=== PATIENT | female | born 1935 | race Caucasian/White ===

== ENCOUNTER 2019-12-23 23:29 | Inpatient (IN) | payer OTHER, MEDICAID ==
[~2019-12-23] VITALS: Ht 157.5 cm; Wt 59.6 kg
[2019-12-23 23:29] VITALS: BP_SYST 123
[~2019-12-23 23:29] MED LIST: ASPI-1155 PO; DONE10TA44 PO; EMPA25TA PO; ESCI10TA PO; FOLI0.8T42 PO; FURO-150 PO; ICOS1CAP PO; NEBI5TAB3 PO; ROSU20TA32 PO; STA120 PO; VITD2000 PO
--- NOTE | 2019-12-23 23:49 | NUR ---
Patient to ER bed 6 to gown for evaluation. Side rails up.
--- NOTE | 2019-12-23 23:50 | NUR ---
Patient BIB EMS. C/O right hip pain x today. Patient states "right hip pain at 2100, could not walk and felt weakness. " Sx In-situ multiple screw fixation, Right hip fx (11/27/2019). A/O,X4, right hip pain, pain rate 10/10, place patient on chief engineer drilling and recovery, slightly swelling right leg.
--- NOTE | 2019-12-24 01:50 | NUR ---
ER Dr. Santos at bedside examining patient.
[2019-12-24] MEDS ORDERED: MORPHINE 2 MG/ML INJ. SYRINGE IM ONE (02:00)
--- NOTE | 2019-12-24 02:07 | NUR ---
Blood for labwork drawn from Mechanical Engineering Teacher. Patient tolerated well.
--- NOTE | 2019-12-24 02:20 | NUR ---
Ultrasound at bedside.
[2019-12-24 02:21] LABS: BASOPHILS # (AUTO) 0.1 K/uL (0.0-0.2); BASOPHILS % (AUTO) 1.2 % (0.0-2.0); EOSINOPHILS # (AUTO) 0.2 K/uL (0.0-0.4); EOSINOPHILS % (AUTO) 2.3 % (0.0-4.0); HEMATOCRIT 33.2 % (36-48); HEMOGLOBIN 11.1 g/dL (12.0-16.0); LYMPHOCYTES # (AUTO) 1.5 K/uL (1.0-5.5); LYMPHOCYTES % (AUTO) 19.8 % (20.5-51.5); MEAN CORPUSCULAR HEMOGLOBIN 30 pg (27-31); MEAN CORPUSCULAR HGB CONC 34 % (32-36); MEAN CORPUSCULAR VOLUME 90 fL (79.0-98.0); MONOCYTES # (AUTO) 0.8 K/uL (0.0-1.0); MONOCYTES % (AUTO) 10.4 % (1.7-9.3); NEUTROPHILS # (AUTO) 5.2 K/uL (1.8-7.7); NEUTROPHILS % (AUTO) 66.3 % (40.0-70.0); PLATELET COUNT (AUTO) 284 K/uL (130-430); RED BLOOD CELL COUNT(AUTO) 3.69 MIL/uL (4.2-6.2); RED CELL DISTRIBUTION WIDTH 14.9 % (9.0-15.0); WHITE BLOOD COUNT (AUTO) 7.8 K/uL (4.8-10.8)
[2019-12-24 02:39] LABS: ANION GAP 3 (5-15); CHLORIDE 102 mmol/L (98-107); CREATININE 1.37 mg/dL (0.55-1.30); GLUCOSE 123 mg/dL (70-99); SODIUM SERUM 131 mmol/L (136-145); UREA NITROGEN, BLOOD 30 mg/dL (8-21)
[2019-12-24 02:44] LABS: ALANINE AMINOTRANSFERASE 29 U/L (12-78); ALBUMIN 2.7 g/dL (3.4-4.8); ASPARTATE AMINOTRANSFERASE 21 U/L (10-37); TOTAL BILIRUBIN 0.6 mg/dL (0.0-1.0)
[2019-12-24 02:48] LABS: PROTHROMBIN TIME 10.3 SECS (9.5-12.5)
[2019-12-24] MEDS ORDERED: ENOXAPARIN SODIUM 60 MG/0.6 ML SYRINGE SUBCUT ONE (03:00)
--- NOTE | 2019-12-24 03:20 | NUR ---
X-ray at bedside.
[2019-12-24] MEDS ORDERED: D5/0.45 NS 1,000 ML IV SCH (03:27)
--- NOTE | 2019-12-24 03:41 | NUR ---
Patient came back from CT scan.
[2019-12-24] MEDS ORDERED: LIP40 PO (03:59)
[2019-12-24] MEDS ORDERED: DONE5TAB26 PO (04:01)
[2019-12-24] MEDS ORDERED: BISA10SU61 RC (04:02)
--- NOTE | 2019-12-24 04:05 | NUR ---
# 22 gauge angiocath placed to left forearm. Use of asceptic technique. Opsite placed over site. Blood return noted. Blood for lab drawn from site. Flushed with 10 cc of normal saline. No evidence of infiltration noted. Patient tolerated well.
[2019-12-24] MEDS ORDERED: LATA2.5D2 OP (04:06)
[2019-12-24] MEDS ORDERED: POLY17PO4 PO (04:07)
[2019-12-24] MEDS ORDERED: HYDR-4274 PO (04:09)
[2019-12-24] MEDS ORDERED: HYDR-4272 PO (04:10)
[2019-12-24] MEDS ORDERED: FOLI0.8T42 PO (04:11)
--- NOTE | 2019-12-24 04:12 | NUR ---
Patient will be admitted to care of Dr. Paul. Admitted to Med/Surg unit. Will go to room 103B. Belongings list completed. Complete and up to date summary report printed. SBAR report to be given at bedside with opportunity for questions.
[2019-12-24] MEDS ORDERED: STA120 PO (04:14)
[2019-12-24] MEDS ORDERED: SENN-278 PO (04:14)
--- NOTE | 2019-12-24 04:21 | NUR ---
Transfer to Med/Surg via [facility]. Licensed nurse present. IV present no signs or symptoms of infiltration.
--- NOTE | 2019-12-24 04:30 | NUR ---
ADMISSION: The patient, LINDA DOBBS, 84 y/o, F admitted by MAUREEN LEBLANC MD, was given written information regarding hospital policies, unit procedures and contact persons. Valuables were checked and pt was informed her nurse will be Missy.
[2019-12-24 04:55] VITALS: BP_SYST 121
--- NOTE | 2019-12-24 06:40 | NUR ---
CLOSING NOTES Patient is resting, no signs of acute respiratory distress observed, IV site patent, dressings c/d/i, IVF running. Call light within reach, bed alarm on, bed at lowest position, all needs met throughout shift. Will endorse care to oncoming shift.
--- NOTE | 2019-12-24 06:46 | NUR ---
Nutrition Update Clay Scale 16 noted. Pt admitted for Acute DVT Diet: Mechanical soft BMI: 24 kg/m2 RD to follow per nutrition care standards.
--- NOTE | 2019-12-24 07:15 | NUR ---
OPENING NOTES PT AWAKE, ALERT, AND ORIENTED. NONLABORED BREATHING NOTED ON ROOM AIR, O2 AT 96%. PT DENIES PAIN AND SOB AT THIS TIME. IV LINE INTACT AND PATENT, NO SIGNS OF INFILTRATION NOTED, FLUIDS RUNNING ORDERED PER MD. NO ACUTE DISTRESS NOTED. BED LOCKED AND IN LOWEST POSITION. CALL LIGHT IN REACH. ALL NEEDS MET. FALL AND ASPIRATION PRECAUTIONS IN PLACE. CONTINUE TO MONITOR.
[2019-12-24 08:00] VITALS: BP_SYST 115
--- NOTE | 2019-12-24 09:00 | NUR ---
ROUNDS PT TALKING TO SON ON THE PHONE. NO ACUTE DISTRESS NOTED. CALL LIGHT IN REACH. CONTINUE TO MONITOR.
--- NOTE | 2019-12-24 11:28 | NUR ---
ROUNDS PT AWAKE, ALERT, AND ORIENTED. NONLABORED BREATHING NOTED ON ROOM AIR. NO ACUTE DISTRESS NOTED. ALL NEEDS MET. CALL LIGHT IN REACH. CONTINUE TO MONITOR.
[2019-12-24 13:00] VITALS: BP_SYST 138
--- NOTE | 2019-12-24 13:30 | NUR ---
GAVE PT PHONE MOLD CLOSER FROM SON. PT RECEIVED PHONE MOLD CLOSER.
--- NOTE | 2019-12-24 14:16 | NUR ---
SEEN BY DR. LEBLANC AT BEDSIDE.
[2019-12-24] MEDS: ENOXAPARIN SODIUM 80 MG/0.8 ML SYRINGE SUBCUT SCH (14:21)
--- NOTE | 2019-12-24 14:23 | NUR ---
ROUTINE MEDS ROUTINE MEDS ADMINISTERED ORDERED PER MD, EDUCATION GIVEN, PT VERBALIZED UNDERSTANDING, TOLERATED WELL. CONTINUE TO MONITOR.
[2019-12-24] MEDS ORDERED: HYDROcodone/ACETAMIN 10-325 MG TAB PO PRN (14:30)
[2019-12-24] MEDS ORDERED: BISACODYL 10 MG/SUPPOSITORY RC PRN (14:30)
[2019-12-24] MEDS ORDERED: HYDROcodone/ACETAMIN 5-325 MG TAB (NORCO/ VICODIN) PO PRN (14:30)
[2019-12-24 16:08] VITALS: BP_SYST 133
[2019-12-24] MEDS: KCL 20 mEq in NS 1000 mL 1,000 ML IV SCH (17:21)
[2019-12-24] MEDS: NATEGLINIDE 120 MG TABLET PO SCH (17:36)
[2019-12-24] MEDS: INSULIN REGULAR, HUMAN 100 UNITS/ML, 10 ML VIAL (humuLIN R) SUBCUT PRN (17:41)
--- NOTE | 2019-12-24 17:45 | NUR ---
ROUTINE MEDS/ ACCUCHECK ROUTINE MEDS ADMINISTERED ORDERED PER MD, EDUCATION GIVEN, TOLERATED WELL. ACCUCHECK DONE, INSULIN COVERAGE ADMINISTERED PER SLIDING SCALE. CONTINUE TO MONITOR.
--- NOTE | 2019-12-24 18:45 | NUR ---
CLOSING NOTES PT AWAKE, ALERT, AND ORIENTED. PT DENIES PAIN AND SOB AT THIS TIME. IV LINE INTACT AND PATENT, NO SIGNS OF INFILTRATION NOTED, FLUIDS RUNNING ORDERED PER MD, TOLERATING WELL. NONLABORED BREATHING NOTED ON ROOM AIR. NO ACUTE DISTRESS NOTED. BED LOCKED AND IN LOWEST POSITION. CALL LIGHT IN REACH. FALL AND ASPIRATION PRECAUTIONS IN PLACE. ALL NEEDS MET. WILL ENDORSE TO NOC NURSE.
--- NOTE | 2019-12-24 19:30 | NUR ---
opening note Patient is resting in bed, eyes closed, no s/sx of distress. IVF infusing via IV to LFA. Nonlabored breathing on room air. Side rails up 3x and bed alarm on, call light w/in reach.
[2019-12-24 20:00] VITALS: BP_SYST 172
--- NOTE | 2019-12-24 20:20 | NUR ---
Dr. Paul Informed Dr. Paul patient has temp of 100.3 and B/P is 172/64; she does not have Tylenol for fever nor BP meds. He asked if UA culture collected I informed day shift nurse didn't and she endorsed it to me, I will get it done. He said get culture, and then give Cefipime antibiotic; he also provided medication orders for Tylenol and Norvasc. Orders read back and entered in [employer]
[2019-12-24] MEDS ORDERED: CEFEPIME 1 GM in D5W 50 ML IV SCH (20:45)
[2019-12-24] MEDS ORDERED: ACETAMINOPHEN 325 MG TABLET PO PRN (20:45)
[2019-12-24] MEDS ORDERED: cloNIDine HCL 0.1 MG TABLET PO PRN (20:45)
[2019-12-24] MEDS ORDERED: amLODIPine BESYLATE 10 MG TABLET PO ONE (20:45)
[2019-12-24] MEDS: METOPROLOL TARTRATE 25 MG TABLET PO SCH (21:29)
[2019-12-24] MEDS: ATORVASTATIN 20 MG TABLET PO SCH (21:30)
--- NOTE | 2019-12-24 21:30 | NUR ---
Meds Patient was given due medication, Lopressor and Tylenol; HOB was raised patient took pills and drank cup of water.
--- NOTE | 2019-12-24 21:45 | NUR ---
In/Out for urine culture Procedure of in/out pelletier catheter insertion was explained to patient and she agreed, say if it is needed. Upon procedure she did get restless, and reported pain to right leg; procedure was carried out with minimal touch or bending of right hip/leg. Clear yellow urine was obtained and sent to lab.
[2019-12-24] MEDS ORDERED: CEFEPIME 1 GM in D5W 50 ML IV ONE (22:30)
--- NOTE | 2019-12-24 22:30 | NUR ---
Temp recheck Temp reassessed and decreased to 99.0
--- NOTE | 2019-12-24 22:36 | NUR ---
s/w Dr. Paul Informed pharmacy recommends Cefepime to be given daily and not BID d/t patient's kidney function; He agreed to daily dose. Also he was informed patient has Lopressor for B/P and he discontinued [facility] order.
[2019-12-25 00:11] VITALS: BP_SYST 138
[2019-12-25] MEDS ORDERED: CEFEPIME 1 GM/VIAL (MAXIPIME) ONE (02:09)
--- NOTE | 2019-12-25 02:27 | NUR ---
Antibiotic Received antibiotic from house sup and administered to patient. Unable to obtain antibiotic earlier d/t house sup was tied up helping in ER.
[2019-12-25] MEDS: ENOXAPARIN SODIUM 80 MG/0.8 ML SYRINGE SUBCUT SCH ×2 (02:30→15:10)
--- NOTE | 2019-12-25 03:00 | NUR ---
Lovenox Patient was very skeptical and questioned Lovenox injection. Medication was explained and she did not agree and insisted she wanted the Doctor to come and see her. Risk and benefits of taking vs not taking medication were explained and patient, was getting agitated, pulled the covers tight and refused. I called the charge nurse GRAY Rodriguez and she explained and the patient was unwilling to listen and wanted us out. A third person, the nurse addictions counselor assistant came and helped, hold her hands and she tolerated injection, she did not complain of pain at injection site.
--- NOTE | 2019-12-25 04:10 | NUR ---
Bed alarm Patient was attempting to get out of bed. She said she was going to walk to the restroom. She was provided with a bed ho, she voided and is resting quietly in bed. Safety precautions in place and call light w/in reach.
--- NOTE | 2019-12-25 05:45 | NUR ---
Bed ho Patient asked for help and she was provided with bed ho, she voided, was provided with wei-care and a clean pad.
[2019-12-25] MEDS: NATEGLINIDE 120 MG TABLET PO SCH ×3 (06:51→15:54)
--- NOTE | 2019-12-25 06:56 | NUR ---
Refused meds Patient saw me arrive, and immediately she said "put away what you have" "I don't wan't anything". I explained I have a tablet for her and was going to check her glucose level, just like last night and she said no. I suggested we call her son, I can explain to him and he can explain to her and she yelled no, she added that she wants to talk to the doctor. I let her refuse, turned the lights off and let her rest.
[2019-12-25] MEDS: KCL 20 mEq in NS 1000 mL 1,000 ML IV SCH (07:25)
[2019-12-25 08:00] VITALS: BP_SYST 152
[2019-12-25] MEDS ORDERED: amLODIPine BESYLATE 10 MG TABLET PO SCH (09:00)
[2019-12-25] MEDS ORDERED: NEPHROVITE, (FOLIC ACID/VITAMIN B COMP W-C 1 TAB) PO SCH (09:00)
[2019-12-25] MEDS: CHOLECALCIFEROL (VITAMIN D3) 2,000 UNIT TABLET PO SCH (09:06)
[2019-12-25] MEDS: SENNOSIDES/DOCUSATE SODIUM 1 TAB TABLET(SENOKOT-S) PO SCH (09:07)
[2019-12-25] MEDS: METOPROLOL TARTRATE 25 MG TABLET PO SCH ×2 (09:07→21:26)
[2019-12-25] MEDS: CITALOPRAM HYDROBROMIDE 20 MG TABLET PO SCH (09:07)
[2019-12-25] MEDS: LATANOPROST 2.5 ML DROPS (XALATAN) OP SCH (09:07)
[2019-12-25] MEDS: POLYETHYLENE GLYCOL 3350, 17 GM/ POWD.PACK PO SCH (09:08)
[2019-12-25] MEDS: NEPHROVITE, (FOLIC ACID/VITAMIN B COMP W-C 1 TAB) PO SCH (09:08)
[2019-12-25] MEDS: ASPIRIN 81 MG TAB.CHEW PO SCH (09:08)
[2019-12-25] MEDS: INSULIN REGULAR, HUMAN 100 UNITS/ML, 10 ML VIAL (humuLIN R) SUBCUT PRN (11:22)
[2019-12-25 12:22] VITALS: BP_SYST 159
--- NOTE | 2019-12-25 13:30 | NUR ---
alert, oriented, and talkative. compliant with care, once things explained to her. No complaint of pain, able to get out of bed, and with a walker, walked to bathroom, with standby assistance.
[2019-12-25 15:43] VITALS: BP_SYST 130
--- NOTE | 2019-12-25 19:30 | NUR ---
opening note Received patient awake, AOx 2-3, She is sitting in bed, she just returned from restroom. IV is SL and it was connected, infusing well. Bed is locked in lowest position, side rails up 3x, bed alarm on and call light w/in reach. Updated board.
[2019-12-25 20:00] VITALS: BP_SYST 143
[2019-12-25] MEDS: CEFEPIME 1 GM in D5W 50 ML IV SCH (21:23)
[2019-12-25] MEDS: ATORVASTATIN 20 MG TABLET PO SCH (21:24)
--- NOTE | 2019-12-25 21:30 | NUR ---
Meds Due medications given, patient was cooperative and took PO meds. IVF infusing well. Fingerstick blood glucose test result was 129mg/dL, no coverage due. She ambulated to restroom and returned to bed, safety precautions in place.
--- NOTE | 2019-12-25 23:34 | NUR ---
OOB - restroom Patient called the light for help to restroom. She was provided with walker and walked to restroom with steady gait, she returned to bed, safety precautions in place and call light w/in reach. IVF fluids infusing well and she is tolerating.
--- NOTE | 2019-12-26 00:45 | NUR ---
IV leaking Patient called reports bed is wet. IV is infiltrated and leaking. She is upset and wants dry linen. She was provided with clean gown and linen.
[2019-12-26 01:53] VITALS: BP_SYST 157
[2019-12-26] MEDS: ENOXAPARIN SODIUM 80 MG/0.8 ML SYRINGE SUBCUT SCH ×2 (02:17→14:41)
--- NOTE | 2019-12-26 02:17 | NUR ---
Lovenox administered, patient had suspicious demeanor, though she did tolerate.
--- NOTE | 2019-12-26 02:30 | NUR ---
IV start attempt Unsuccessful attempt at IV start, one attempt and vein blew. Patient was yelling, I'm going to kill her and did not want me to try again. removed infiltrated IV on LFA
[2019-12-26] MEDS: KCL 20 mEq in NS 1000 mL 1,000 ML IV SCH ×2 (03:00→19:40)
--- NOTE | 2019-12-26 03:19 | NUR ---
Vicodin Patient given pain med for moderate pain, will monitor.
[2019-12-26 06:37] LABS: ANION GAP 5 (5-15); CALCIUM 8.7 mg/dL (8.4-11.0); CHLORIDE 105 mmol/L (98-107); GLUCOSE 133 mg/dL (70-99); SODIUM SERUM 132 mmol/L (136-145); UREA NITROGEN, BLOOD 19 mg/dL (8-21)
[2019-12-26 06:41] LABS: BASOPHILS # (AUTO) 0.1 K/uL (0.0-0.2); BASOPHILS % (AUTO) 1.3 % (0.0-2.0); EOSINOPHILS # (AUTO) 0.2 K/uL (0.0-0.4); EOSINOPHILS % (AUTO) 3.1 % (0.0-4.0); HEMATOCRIT 32.2 % (36-48); HEMOGLOBIN 10.7 g/dL (12.0-16.0); LYMPHOCYTES # (AUTO) 1.8 K/uL (1.0-5.5); LYMPHOCYTES % (AUTO) 26.6 % (20.5-51.5); MEAN CORPUSCULAR HEMOGLOBIN 30 pg (27-31); MEAN CORPUSCULAR HGB CONC 33 % (32-36); MEAN CORPUSCULAR VOLUME 90 fL (79.0-98.0); MONOCYTES # (AUTO) 0.8 K/uL (0.0-1.0); MONOCYTES % (AUTO) 12.9 % (1.7-9.3); NEUTROPHILS # (AUTO) 3.7 K/uL (1.8-7.7); NEUTROPHILS % (AUTO) 56.1 % (40.0-70.0); PLATELET COUNT (AUTO) 311 K/uL (130-430); RED BLOOD CELL COUNT(AUTO) 3.58 MIL/uL (4.2-6.2); RED CELL DISTRIBUTION WIDTH 14.5 % (9.0-15.0); WHITE BLOOD COUNT (AUTO) 6.6 K/uL (4.8-10.8)
[2019-12-26] MEDS: NATEGLINIDE 120 MG TABLET PO SCH ×3 (07:01→16:10)
--- NOTE | 2019-12-26 07:08 | NUR ---
closing note Patient ambulated to restroom, returned to bed. Fingerstick BG done w/ result of 120mg/dL; no coverage. She took pill; Starlix. Safety precautions in place and call light w/in reach. Presently no IV access and will endorse to day shift nurse. Safety precautions in place, will endorse to day shift nurse.
[2019-12-26 08:00] VITALS: BP_SYST 141
[2019-12-26] MEDS: POLYETHYLENE GLYCOL 3350, 17 GM/ POWD.PACK PO SCH (08:42)
[2019-12-26] MEDS: SENNOSIDES/DOCUSATE SODIUM 1 TAB TABLET(SENOKOT-S) PO SCH (08:42)
[2019-12-26] MEDS: METOPROLOL TARTRATE 25 MG TABLET PO SCH ×2 (08:43→21:52)
[2019-12-26] MEDS: CHOLECALCIFEROL (VITAMIN D3) 2,000 UNIT TABLET PO SCH (08:43)
[2019-12-26] MEDS: ASPIRIN 81 MG TAB.CHEW PO SCH (08:43)
[2019-12-26] MEDS: CITALOPRAM HYDROBROMIDE 20 MG TABLET PO SCH (08:43)
[2019-12-26] MEDS: NEPHROVITE, (FOLIC ACID/VITAMIN B COMP W-C 1 TAB) PO SCH (08:43)
[2019-12-26] MEDS: LATANOPROST 2.5 ML DROPS (XALATAN) OP SCH (08:44)
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
[2019-12-26] MEDS: INSULIN REGULAR, HUMAN 100 UNITS/ML, 10 ML VIAL (humuLIN R) SUBCUT PRN (10:30)
[2019-12-26 12:16] VITALS: BP_SYST 136
--- NOTE | 2019-12-26 14:22 | NUR ---
Discharge Planning: DCP faxed pt referral to [facility] (f [phone] p [phone]) DCP to follow up.
[2019-12-26 16:41] VITALS: BP_SYST 130
--- NOTE | 2019-12-26 17:49 | NUR ---
Uneventful day today, on the phone most of the shift, no wandering around, approached her one more time about re-insertion of a new HL, agreed. New HL on RAC #[id number], resume ivf
[2019-12-26 20:00] VITALS: BP_SYST 136
[2019-12-26] MEDS: CEFEPIME 1 GM in D5W 50 ML IV SCH (21:48)
[2019-12-26] MEDS: ATORVASTATIN 20 MG TABLET PO SCH (21:52)
[2019-12-27] MEDS: NATEGLINIDE 120 MG TABLET PO SCH ×3 (06:47→17:08)
[2019-12-27] MEDS: ENOXAPARIN SODIUM 80 MG/0.8 ML SYRINGE SUBCUT SCH ×2 (06:57→17:09)
--- NOTE | 2019-12-27 07:46 | NUR ---
Opening Note received bedside SBAR report from turner machine operator RN, patient resting in bed, respirations even and unlabored on room air, no acute distress noted, patient reports pain is controlled at this time, room close to nurses station, educated patient on use of call light and asked to call for assistance, patient verbalized understanding, call light in reach, educated patient on use of bed alarm for patient safety, patient refusing bed alarm, bed in low and locked position.
[2019-12-27 08:00] VITALS: BP_SYST 147
[2019-12-27] MEDS: ASPIRIN 81 MG TAB.CHEW PO SCH (08:31)
[2019-12-27] MEDS: SENNOSIDES/DOCUSATE SODIUM 1 TAB TABLET(SENOKOT-S) PO SCH (08:31)
[2019-12-27] MEDS: CITALOPRAM HYDROBROMIDE 20 MG TABLET PO SCH (08:31)
[2019-12-27] MEDS: LATANOPROST 2.5 ML DROPS (XALATAN) OP SCH (08:31)
[2019-12-27] MEDS: POLYETHYLENE GLYCOL 3350, 17 GM/ POWD.PACK PO SCH (08:31)
[2019-12-27] MEDS: NEPHROVITE, (FOLIC ACID/VITAMIN B COMP W-C 1 TAB) PO SCH (08:31)
[2019-12-27] MEDS: CHOLECALCIFEROL (VITAMIN D3) 2,000 UNIT TABLET PO SCH (08:32)
[2019-12-27] MEDS: METOPROLOL TARTRATE 25 MG TABLET PO SCH (08:32)
--- NOTE | 2019-12-27 09:41 | NUR ---
Physical Therapy patient ambulating in [place] with physical therapy and walker, tolerating well.
--- NOTE | 2019-12-27 11:15 | NUR ---
Ambulated to bathroom patient ambulated to bathroom with walker, patient had BM x1, voided x1, patient ambulated back to bed, minimal assistance required, patient sitting up in bed.
[2019-12-27] MEDS: KCL 20 mEq in NS 1000 mL 1,000 ML IV SCH (12:16)
[2019-12-27 12:27] VITALS: BP_SYST 145
--- NOTE | 2019-12-27 13:05 | NUR ---
RN Rounds patient resting in bed, respirations even and unlabored on room air, no acute distress noted, patient denies any pain.
--- NOTE | 2019-12-27 14:20 | NUR ---
Discharge Planning: DCP spoke to Mana at [facility] (f [phone] p [phone]) patient can go to Rm 124B, DCP spoke to nurse DC order is needed. Nurse and CM made aware and DCP place transport on Will Call with [facility] ([phone]). Patient packet taken to nurse station.
--- NOTE | 2019-12-27 14:55 | NUR ---
Ambulated to bathroom patient ambulated to bathroom with walker, steady gait noted, BM x1, voided x1, patient ambulated back to bed, minimal assistance required.
[2019-12-27 16:09] VITALS: BP_SYST 115
--- NOTE | 2019-12-27 17:15 | NUR ---
RN Rounds patient sitting up in bed, respirations even and unlabored on room air, no acute distress noted, patient denies any pain.
--- NOTE | 2019-12-27 19:02 | NUR ---
Physician Rounds Dr. Paul at bedside examining patient.
--- NOTE | 2019-12-27 19:09 | NUR ---
SPOKE WITH SON INFORMED SON THAT PT HAS BEEN ACCEPTED BACK TO [facility] TO ROOM 124A. SON AGREEABLE WITH TRANSFER.
--- NOTE | 2019-12-27 19:26 | NUR ---
Closing Note SBAR report given to receiving RN, patient resting in bed, respirations even and unlabored on room air, no acute distress noted, room close to nurses station, educated patient on use of call light and asked to call for assistance, patient verbalized understanding, call light in reach, educated patient on use of bed alarm for patient safety, patient refusing bed alarm, bed in low and locked position, care endorsed to classifier RN.
[2019-12-27 20:21] VITALS: BP_SYST 142
[2019-12-27] MEDS ORDERED: APIXABAN 2.5 MG TABLET PO SCH (21:00)
== END 2019-12-27 21:25 | DRG 299 ==
LOC: SED 23:29 → SMU 12-24 03:27
PROVIDERS: ADMIT Family Medicine; ATTEND Family Medicine
DX: I82.411 Acute embolism and thrombosis of right femoral vein (principal); E43 Unspecified severe protein-calorie malnutrition; N39.0 Urinary tract infection, site not specified; E11.9 Type 2 diabetes mellitus without complications; I10 Essential (primary) hypertension; E78.5 Hyperlipidemia, unspecified; M81.0 Age-related osteoporosis without current pathological fracture; F32.9 Major depressive disorder, single episode, unspecified; Z79.82 Long term (current) use of aspirin; Z79.899 Other long term (current) drug therapy; Z68.24 Body mass index [BMI] 24.0-24.9, adult
CPT/HCPCS: 36415; 71045; 72192-TC; 80048; 80053; 82962; 83735-TC; 85025; 85610-TC; 85730-TC; 87081; 87086; 93005; 93971; 96372; 97110-GP; 97116-GP; 97163; 99285; J0692; J1650; J1815; J2270; J3480; J7060

== ENCOUNTER 2023-04-28 17:16 | Inpatient (IN) | payer OTHER, MEDICAID ==
[~2023-04-28] VITALS: Ht 157.5 cm; Wt 59.4 kg
[2023-04-28 17:16] VITALS: BP_SYST 169; PULSE 68; RESP 16; TEMP 97.1; O2SAT 96
[~2023-04-28 17:16] MED LIST changes: +BISA10SU61 RC; +DONE-49 PO; -DONE10TA44 PO; +HYDR-4272 PO; +HYDR-4274 PO; +LATA2.5D14 OP; +LIP40 PO; +POLY17PO4 PO; -ROSU20TA32 PO; +ROSU20TA73 PO; +SENN-278 PO
[2023-04-28] MEDS ORDERED: NACL 0.9% 1,000 ML IV ONE (19:15)
[2023-04-28 19:34] LABS: BASOPHILS # (AUTO) 0.1 K/uL (0.0-0.2); BASOPHILS % (AUTO) 0.9 % (0.0-2.0); EOSINOPHILS % (AUTO) 0.3 % (0.0-4.0); HEMOGLOBIN 13.9 g/dL (12.0-16.0); LYMPHOCYTES # (AUTO) 1.5 K/uL (1.0-5.5); LYMPHOCYTES % (AUTO) 17.6 % (20.5-51.5); MEAN CORPUSCULAR HEMOGLOBIN 27 pg (27-31); MEAN CORPUSCULAR HGB CONC 32 % (32-36); MEAN CORPUSCULAR VOLUME 84 fL (79.0-98.0); MONOCYTES # (AUTO) 0.6 K/uL (0.0-1.0); MONOCYTES % (AUTO) 7.5 % (1.7-9.3); NEUTROPHILS # (AUTO) 6.2 K/uL (1.8-7.7); NEUTROPHILS % (AUTO) 73.7 % (40.0-70.0); PLATELET COUNT (AUTO) 180 K/uL (130-430); RED BLOOD CELL COUNT(AUTO) 5.24 MIL/uL (4.2-6.2); RED CELL DISTRIBUTION WIDTH 17.3 % (9.0-15.0); WHITE BLOOD COUNT (AUTO) 8.4 K/uL (4.8-10.8)
[2023-04-28 19:45] LABS: ANION GAP 6 (5-15); CALCIUM 9.9 mg/dL (8.4-11.0); CARBON DIOXIDE 26 mmol/L (23-29); CHLORIDE 103 mmol/L (98-107); CREATININE 1.25 mg/dL (0.55-1.30); GLUCOSE 135 mg/dL (74-106); POTASSIUM 4.3 mmol/L (3.5-5.1); SODIUM SERUM 135 mmol/L (136-145); UREA NITROGEN, BLOOD 13 mg/dL (8-21)
[2023-04-28 19:52] LABS: ALANINE AMINOTRANSFERASE 120 U/L (12-78); ALBUMIN 2.9 g/dL (3.4-4.8); ASPARTATE AMINOTRANSFERASE 132 U/L (10-37); TOTAL PROTEIN, SERUM 6.4 g/dL (6.4-8.3)
[2023-04-28 20:58] LABS: BILIRUBIN,URINE NEGATIVE (NEGATIVE); BLOOD, URINE 1+ (NEGATIVE); COLOR,URINE YELLOW (YELLOW); GLUCOSE,URINE 3+ (NEGATIVE); KETONES,URINE TRACE (NEGATIVE); LEUKOCYTE ESTERASE ,URINE TRACE (NEGATIVE); NITRITE, URINE POSITIVE (NEGATIVE); PROTEIN URINE NEGATIVE (NEGATIVE); UROBILINOGEN,URINE 0.2 (0.2-1.0)
[2023-04-28] MEDS ORDERED: KETOROLAC TROMETHAMINE 30 MG VIAL IVP ONE (21:00)
[2023-04-28 21:03] LABS: CLARITY/URINE HAZY (CLEAR)
[2023-04-28 21:25] LABS: BACTERIA,URINE MANY /HPF (None Seen)
[2023-04-28] MEDS ORDERED: cefTRIAXone 1 GM IVPB PREMIX 50 ML IV ONE (22:00)
[2023-04-28] MEDS ORDERED: LORazepam 2 MG/ML VIAL IVP PRN (23:30)
[2023-04-28] MEDS ORDERED: NALOXONE HCL 0.4 MG/ML AMP (NARCAN) IVP PRN ×2 (23:30)
[2023-04-28] MEDS ORDERED: cefTRIAXone 1 GM in D5W 50 ML IV SCH (23:30)
[2023-04-28] MEDS ORDERED: MORPHINE 2 MG/ML INJ. SYRINGE IVP PRN ×2 (23:30)
[2023-04-28] MEDS ORDERED: POTASSIUM CHLORIDE 20 MEQ TAB.PRT.SR PO PRN (23:30)
[2023-04-28] MEDS ORDERED: ONDANSETRON HCL 4 MG/2 ML VIAL IVP PRN (23:30)
[2023-04-28] MEDS ORDERED: MUPIROCIN 2% TOPICAL OINTMENT 22 GM NS PRN (23:30)
[2023-04-28] MEDS ORDERED: ACETAMINOPHEN 325 MG TABLET PO PRN (23:30)
[2023-04-28] MEDS ORDERED: DOCUSATE SODIUM 100 MG CAPSULE PO PRN (23:30)
[2023-04-28] MEDS ORDERED: DEXTROSE 50% JECT 50 ML DISP.SYRIN IVP PRN (23:30)
[2023-04-28] MEDS ORDERED: MAGNESIUM SULFATE 50 ML IV PRN (23:30)
[2023-04-28 23:50] VITALS: BP_SYST 157; RESP 18; O2SAT 100
[2023-04-28 23:52] VITALS: PULSE 60; RESP 18; O2SAT 100
[2023-04-29 04:26] LABS: BASOPHILS # (AUTO) 0.1 K/uL (0.0-0.2); EOSINOPHILS # (AUTO) 0.1 K/uL (0.0-0.4); EOSINOPHILS % (AUTO) 0.9 % (0.0-4.0); HEMATOCRIT 40.4 % (36-48); HEMOGLOBIN 12.7 g/dL (12.0-16.0); LYMPHOCYTES % (AUTO) 31.5 % (20.5-51.5); MEAN CORPUSCULAR HEMOGLOBIN 26 pg (27-31); MEAN CORPUSCULAR HGB CONC 31 % (32-36); MEAN CORPUSCULAR VOLUME 84 fL (79.0-98.0); MONOCYTES # (AUTO) 0.6 K/uL (0.0-1.0); MONOCYTES % (AUTO) 9.9 % (1.7-9.3); NEUTROPHILS # (AUTO) 3.7 K/uL (1.8-7.7); NEUTROPHILS % (AUTO) 56.7 % (40.0-70.0); PLATELET COUNT (AUTO) 164 K/uL (130-430); RED BLOOD CELL COUNT(AUTO) 4.81 MIL/uL (4.2-6.2); RED CELL DISTRIBUTION WIDTH 17.3 % (9.0-15.0); WHITE BLOOD COUNT (AUTO) 6.5 K/uL (4.8-10.8)
[2023-04-29 04:32] LABS: HEMOGLOBIN A1C 7.35 % (<5.7)
[2023-04-29 04:47] LABS: ANION GAP 7 (5-15); CALCIUM 9.2 mg/dL (8.4-11.0); CARBON DIOXIDE 25 mmol/L (23-29); CHLORIDE 105 mmol/L (98-107); CREATININE 1.26 mg/dL (0.55-1.30); GLUCOSE 161 mg/dL (74-106); POTASSIUM 4.2 mmol/L (3.5-5.1); SODIUM SERUM 137 mmol/L (136-145); UREA NITROGEN, BLOOD 14 mg/dL (8-21)
[2023-04-29 08:00] VITALS: BP_SYST 165; PULSE 68; RESP 18; TEMP 98; O2SAT 100; O2SAT 98
[2023-04-29] MEDS ORDERED: ATORVASTATIN 20 MG TABLET PO SCH (09:00)
[2023-04-29] MEDS ORDERED: NON-FORMULARY MEDICATION (Rosuvastatin Calcium 20 MG) PO SCH (09:00)
[2023-04-29] MEDS ORDERED: ESCITALOPRAM OXALATE 10 MG TABLET PO SCH (09:00)
[2023-04-29] MEDS ORDERED: FUROSEMIDE 20 MG TABLET PO SCH (09:00)
[2023-04-29] MEDS ORDERED: NEBIVOLOL HCL Non-Formulary 5 MG TABLET PO SCH (09:00)
[2023-04-29] MEDS: ASPIRIN 81 MG TAB.CHEW PO SCH (11:47)
[2023-04-29] MEDS: METOPROLOL TARTRATE 25 MG TABLET PO SCH ×2 (11:48→21:20)
[2023-04-29] MEDS: CITALOPRAM HYDROBROMIDE 20 MG TABLET PO SCH (11:48)
[2023-04-29] MEDS: HEPARIN SODIUM,PORCINE 5,000 UNITS/ML VIAL SUBCUT SCH ×2 (11:57→21:34)
[2023-04-29 12:00] VITALS: BP_SYST 117; PULSE 75; RESP 16; TEMP 98.8; O2SAT 95
[2023-04-29] MEDS: FUROSEMIDE 20 MG/2 ML VIAL IVP SCH (12:06)
[2023-04-29] MEDS: INSULIN LISPRO SLIDING SCALE 100 UNITS/ML, 3 ML VIAL (humaLOG) SUBCUT PRN ×2 (12:44→21:24)
[2023-04-29 16:00] VITALS: BP_SYST 133; PULSE 60; RESP 16; TEMP 97.2; O2SAT 95
[2023-04-29 19:00] VITALS: O2SAT 94
[2023-04-29 20:00] VITALS: BP_SYST 144; PULSE 62; RESP 16; TEMP 98.4; O2SAT 94
[2023-04-29] MEDS: LATANOPROST 2.5 ML DROPS (XALATAN) OP SCH (21:00)
[2023-04-29] MEDS: cefTRIAXone 1 GM in D5W 50 ML IV SCH (21:16)
[2023-04-29] MEDS: ZOLPIDEM TARTRATE 5 MG TABLET PO PRN (21:19)
[2023-04-29] MEDS: DONEPEZIL HCL 5 MG TABLET (ARICEPT) PO SCH (21:19)
[2023-04-30 00:04] VITALS: BP_SYST 161; PULSE 68; RESP 18; TEMP 98; O2SAT 100
[2023-04-30 04:49] LABS: BASOPHILS # (AUTO) 0.1 K/uL (0.0-0.2); BASOPHILS % (AUTO) 1.2 % (0.0-2.0); EOSINOPHILS # (AUTO) 0.1 K/uL (0.0-0.4); EOSINOPHILS % (AUTO) 1.7 % (0.0-4.0); HEMATOCRIT 40.9 % (36-48); HEMOGLOBIN 13.1 g/dL (12.0-16.0); LYMPHOCYTES # (AUTO) 2.6 K/uL (1.0-5.5); MEAN CORPUSCULAR HEMOGLOBIN 27 pg (27-31); MEAN CORPUSCULAR HGB CONC 32 % (32-36); MEAN CORPUSCULAR VOLUME 84 fL (79.0-98.0); MONOCYTES # (AUTO) 0.6 K/uL (0.0-1.0); MONOCYTES % (AUTO) 8.3 % (1.7-9.3); NEUTROPHILS % (AUTO) 53.8 % (40.0-70.0); PLATELET COUNT (AUTO) 177 K/uL (130-430); RED BLOOD CELL COUNT(AUTO) 4.88 MIL/uL (4.2-6.2); RED CELL DISTRIBUTION WIDTH 16.9 % (9.0-15.0); WHITE BLOOD COUNT (AUTO) 7.5 K/uL (4.8-10.8)
[2023-04-30 05:08] LABS: ANION GAP 4 (5-15); CALCIUM 9.5 mg/dL (8.4-11.0); CARBON DIOXIDE 27 mmol/L (23-29); CHLORIDE 100 mmol/L (98-107); CREATININE 1.39 mg/dL (0.55-1.30); GLUCOSE 114 mg/dL (74-106); POTASSIUM 3.9 mmol/L (3.5-5.1); SODIUM SERUM 131 mmol/L (136-145); UREA NITROGEN, BLOOD 25 mg/dL (8-21)
[2023-04-30 08:00] VITALS: BP_SYST 132; PULSE 67; RESP 19; TEMP 98.1; O2SAT 96
[2023-04-30] MEDS: FUROSEMIDE 20 MG/2 ML VIAL IVP SCH (09:44)
[2023-04-30] MEDS: HEPARIN SODIUM,PORCINE 5,000 UNITS/ML VIAL SUBCUT SCH ×2 (09:52→20:45)
[2023-04-30] MEDS: ASPIRIN 81 MG TAB.CHEW PO SCH (09:53)
[2023-04-30] MEDS: CITALOPRAM HYDROBROMIDE 20 MG TABLET PO SCH (09:54)
[2023-04-30] MEDS: METOPROLOL TARTRATE 25 MG TABLET PO SCH ×2 (09:54→20:42)
[2023-04-30 12:00] VITALS: BP_SYST 132; PULSE 62; RESP 16; TEMP 97.2; O2SAT 94
[2023-04-30] MEDS: INSULIN LISPRO SLIDING SCALE 100 UNITS/ML, 3 ML VIAL (humaLOG) SUBCUT PRN ×2 (13:06→17:27)
[2023-04-30] MEDS: NACL 0.9% 1,000 ML IV SCH (13:11)
[2023-04-30 16:00] VITALS: BP_SYST 113; PULSE 63; RESP 16; TEMP 98.4; O2SAT 95
[2023-04-30 20:00] VITALS: BP_SYST 141; PULSE 64; RESP 16; TEMP 98.8; O2SAT 94
[2023-04-30] MEDS: LATANOPROST 2.5 ML DROPS (XALATAN) OP SCH (20:40)
[2023-04-30] MEDS: ZOLPIDEM TARTRATE 5 MG TABLET PO PRN (20:42)
[2023-04-30] MEDS: DONEPEZIL HCL 5 MG TABLET (ARICEPT) PO SCH (20:42)
[2023-04-30] MEDS: cefTRIAXone 1 GM in D5W 50 ML IV SCH (20:51)
[2023-04-30 22:58] VITALS: O2SAT 94
[2023-05-01 01:09] VITALS: BP_SYST 102; PULSE 64; RESP 18; TEMP 97.6; O2SAT 93
[2023-05-01 06:25] LABS: BASOPHILS # (AUTO) 0.1 K/uL (0.0-0.2); BASOPHILS % (AUTO) 0.9 % (0.0-2.0); EOSINOPHILS # (AUTO) 0.2 K/uL (0.0-0.4); EOSINOPHILS % (AUTO) 2.1 % (0.0-4.0); HEMATOCRIT 44.3 % (36-48); HEMOGLOBIN 14.2 g/dL (12.0-16.0); LYMPHOCYTES # (AUTO) 2.7 K/uL (1.0-5.5); LYMPHOCYTES % (AUTO) 33.3 % (20.5-51.5); MEAN CORPUSCULAR HEMOGLOBIN 27 pg (27-31); MEAN CORPUSCULAR HGB CONC 32 % (32-36); MEAN CORPUSCULAR VOLUME 84 fL (79.0-98.0); MONOCYTES # (AUTO) 0.7 K/uL (0.0-1.0); MONOCYTES % (AUTO) 8.9 % (1.7-9.3); NEUTROPHILS # (AUTO) 4.5 K/uL (1.8-7.7); NEUTROPHILS % (AUTO) 54.8 % (40.0-70.0); PLATELET COUNT (AUTO) 169 K/uL (130-430); RED BLOOD CELL COUNT(AUTO) 5.27 MIL/uL (4.2-6.2); RED CELL DISTRIBUTION WIDTH 17.7 % (9.0-15.0); WHITE BLOOD COUNT (AUTO) 8.2 K/uL (4.8-10.8)
[2023-05-01] MEDS: NACL 0.9% 1,000 ML IV SCH (06:36)
[2023-05-01 06:38] LABS: ANION GAP 5 (5-15); CALCIUM 9.4 mg/dL (8.4-11.0); CARBON DIOXIDE 26 mmol/L (23-29); CHLORIDE 100 mmol/L (98-107); CREATININE 1.43 mg/dL (0.55-1.30); GLUCOSE 143 mg/dL (74-106); POTASSIUM 3.9 mmol/L (3.5-5.1); SODIUM SERUM 131 mmol/L (136-145); UREA NITROGEN, BLOOD 29 mg/dL (8-21)
[2023-05-01 08:00] VITALS: O2SAT 94
[2023-05-01] MEDS: ASPIRIN 81 MG TAB.CHEW PO SCH (09:26)
[2023-05-01] MEDS: METOPROLOL TARTRATE 25 MG TABLET PO SCH (09:26)
[2023-05-01] MEDS: CITALOPRAM HYDROBROMIDE 20 MG TABLET PO SCH (09:27)
[2023-05-01] MEDS: HEPARIN SODIUM,PORCINE 5,000 UNITS/ML VIAL SUBCUT SCH (09:32)
[2023-05-01] MEDS: FUROSEMIDE 20 MG/2 ML VIAL IVP SCH (09:52)
[2023-05-01 12:00] VITALS: BP_SYST 114; PULSE 65; RESP 19; TEMP 98.1; O2SAT 96
[2023-05-01 12:52] VITALS: BP_SYST 115; PULSE 65; RESP 18; TEMP 97.9; O2SAT 94
[2023-05-01] MEDS: INSULIN LISPRO SLIDING SCALE 100 UNITS/ML, 3 ML VIAL (humaLOG) SUBCUT PRN (13:33)
== END 2023-05-01 13:50 | DRG 690 ==
LOC: SED 17:16 → SMU 21:50
PROVIDERS: ADMIT General Practice; ATTEND General Practice
DX: N39.0 Urinary tract infection, site not specified (principal); E44.0 Moderate protein-calorie malnutrition; E86.0 Dehydration; E11.9 Type 2 diabetes mellitus without complications; E78.5 Hyperlipidemia, unspecified; I50.9 Heart failure, unspecified; I11.0 Hypertensive heart disease with heart failure; F32.A Depression, unspecified; M81.0 Age-related osteoporosis without current pathological fracture; Z66 Do not resuscitate; K21.9 Gastro-esophageal reflux disease without esophagitis; K59.00 Constipation, unspecified; R74.01 Elevation of levels of liver transaminase levels; Z68.24 Body mass index [BMI] 24.0-24.9, adult
CPT/HCPCS: 36415; 70450-TC; 71045; 72170-TC; 76376; 80048; 80053; 81000; 81001; 81015; 82962; 83037; 83605; 83735; 83880; 84484; 85025; 87040; 87086; 93005; 96361; 96374; 97116-GP; 97530-GP; 99285; J0696; J1644; J1885; J1940; J7060

== ENCOUNTER 2023-08-22 13:42 | Inpatient (IN) | payer OTHER, MEDICAID ==
[~2023-08-22] VITALS: Ht 162.6 cm; Wt 50.1 kg
[~2023-08-22 13:42] MED LIST changes: -LIP40 PO
[2023-08-22 13:53] VITALS: BP_SYST 116; PULSE 65; RESP 15; TEMP 97.2; O2SAT 96
[2023-08-22 15:16] LABS: BASOPHILS # (AUTO) 0.1 K/uL (0.0-0.2); EOSINOPHILS # (AUTO) 0.2 K/uL (0.0-0.4); EOSINOPHILS % (AUTO) 2.3 % (0.0-4.0); HEMOGLOBIN 14.3 g/dL (12.0-16.0); LYMPHOCYTES # (AUTO) 1.3 K/uL (1.0-5.5); LYMPHOCYTES % (AUTO) 15.5 % (20.5-51.5); MEAN CORPUSCULAR HEMOGLOBIN 29 pg (27-31); MEAN CORPUSCULAR HGB CONC 33 % (32-36); MEAN CORPUSCULAR VOLUME 87 fL (79.0-98.0); MONOCYTES # (AUTO) 0.5 K/uL (0.0-1.0); MONOCYTES % (AUTO) 6.6 % (1.7-9.3); NEUTROPHILS % (AUTO) 74.6 % (40.0-70.0); PLATELET COUNT (AUTO) 198 K/uL (130-430); RED BLOOD CELL COUNT(AUTO) 4.93 MIL/uL (4.2-6.2); RED CELL DISTRIBUTION WIDTH 17.5 % (9.0-15.0); WHITE BLOOD COUNT (AUTO) 8.1 K/uL (4.8-10.8)
[2023-08-22 15:20] LABS: ANION GAP 8 (5-15); CARBON DIOXIDE 25 mmol/L (23-29); CHLORIDE 104 mmol/L (98-107); CREATININE 1.28 mg/dL (0.55-1.30); GLUCOSE 274 mg/dL (74-106); POTASSIUM 4.1 mmol/L (3.5-5.1); SODIUM SERUM 137 mmol/L (136-145); UREA NITROGEN, BLOOD 25 mg/dL (8-21)
[2023-08-22 15:23] LABS: ACETONE, SERUM NEGATIVE (NEGATIVE)
[2023-08-22 15:25] LABS: CREATINE KINASE, TOTAL 64 U/L (26-192)
[2023-08-22] MEDS: INSULIN REGULAR, HUMAN 100 UNITS/ML, 3 ML VIAL (humuLIN R) SUBCUT PRN (18:21)
[2023-08-22] MEDS ORDERED: NEBIVOLOL HCL Non-Formulary 5 MG TABLET PO SCH (20:15)
[2023-08-22] MEDS ORDERED: POTASSIUM CHLORIDE 20 MEQ TABLET.ER PO PRN (20:15)
[2023-08-22] MEDS ORDERED: LORazepam 2 MG/ML VIAL IVP PRN (20:15)
[2023-08-22] MEDS ORDERED: DOCUSATE SODIUM 100 MG CAPSULE PO PRN (20:15)
[2023-08-22] MEDS ORDERED: NALOXONE HCL 0.4 MG/ML AMP (NARCAN) IVP PRN ×2 (20:15)
[2023-08-22] MEDS ORDERED: ONDANSETRON HCL 4 MG/2 ML VIAL IVP PRN (20:15)
[2023-08-22] MEDS ORDERED: MORPHINE 2 MG/ML INJ. SYRINGE IVP PRN ×2 (20:15)
[2023-08-22] MEDS ORDERED: ACETAMINOPHEN 500 MG TABLET PO PRN ×3 (20:15)
[2023-08-22] MEDS ORDERED: ZOLPIDEM TARTRATE 5 MG TABLET PO PRN (20:15)
[2023-08-22] MEDS ORDERED: MUPIROCIN 2% TOPICAL OINTMENT 22 GM NS PRN (20:15)
[2023-08-22] MEDS ORDERED: MAGNESIUM SULFATE 50 ML IV PRN (20:15)
[2023-08-22] MEDS: NACL 0.9% 1,000 ML IV SCH (20:46)
[2023-08-22 21:41] LABS: BILIRUBIN,URINE NEGATIVE (NEGATIVE); CLARITY/URINE CLEAR (CLEAR); COLOR,URINE YELLOW (YELLOW); GLUCOSE,URINE 3+ (NEGATIVE); KETONES,URINE NEGATIVE (NEGATIVE); LEUKOCYTE ESTERASE ,URINE TRACE (NEGATIVE); NITRITE, URINE POSITIVE (NEGATIVE); PROTEIN URINE NEGATIVE (NEGATIVE); UROBILINOGEN,URINE 0.2 (0.2-1.0)
[2023-08-22 21:47] LABS: BLOOD, URINE TRACE (NEGATIVE)
[2023-08-22 21:52] LABS: BACTERIA,URINE MODERATE /HPF (None Seen)
[2023-08-22 22:34] LABS: HEMOGLOBIN A1C 7.74 % (<5.7)
[2023-08-22 23:10] VITALS: BP_SYST 130; PULSE 86; RESP 18; TEMP 98.1; O2SAT 100
[2023-08-22] MEDS: METOPROLOL TARTRATE 25 MG TABLET PO SCH (23:57)
[2023-08-22] MEDS: HEPARIN SODIUM,PORCINE 5,000 UNITS/ML VIAL SUBCUT SCH (23:58)
[2023-08-23] VITALS (7 sets, daily range): BP systolic 104–128; PULSE 60–75; RESP 16–18; TEMP 97.5–98; O2SAT 2–98
[2023-08-23] MEDS: LATANOPROST 2.5 ML DROPS (XALATAN) OP SCH (00:02)
[2023-08-23 05:13] LABS: BASOPHILS % (AUTO) 0.6 % (0.0-2.0); EOSINOPHILS % (AUTO) 0.4 % (0.0-4.0); HEMATOCRIT 39.5 % (36-48); HEMOGLOBIN 13.2 g/dL (12.0-16.0); LYMPHOCYTES # (AUTO) 1.9 K/uL (1.0-5.5); LYMPHOCYTES % (AUTO) 23.9 % (20.5-51.5); MEAN CORPUSCULAR HEMOGLOBIN 29 pg (27-31); MEAN CORPUSCULAR HGB CONC 34 % (32-36); MEAN CORPUSCULAR VOLUME 86 fL (79.0-98.0); MONOCYTES # (AUTO) 0.7 K/uL (0.0-1.0); MONOCYTES % (AUTO) 9.3 % (1.7-9.3); NEUTROPHILS # (AUTO) 5.2 K/uL (1.8-7.7); NEUTROPHILS % (AUTO) 65.8 % (40.0-70.0); PLATELET COUNT (AUTO) 181 K/uL (130-430); RED BLOOD CELL COUNT(AUTO) 4.62 MIL/uL (4.2-6.2); RED CELL DISTRIBUTION WIDTH 17.2 % (9.0-15.0); WHITE BLOOD COUNT (AUTO) 7.9 K/uL (4.8-10.8)
[2023-08-23 05:38] LABS: ANION GAP 6 (5-15); CALCIUM 9.8 mg/dL (8.4-11.0); CARBON DIOXIDE 25 mmol/L (23-29); CHLORIDE 107 mmol/L (98-107); CREATININE 1.23 mg/dL (0.55-1.30); GLUCOSE 151 mg/dL (74-106); POTASSIUM 4.3 mmol/L (3.5-5.1); SODIUM SERUM 138 mmol/L (136-145); UREA NITROGEN, BLOOD 23 mg/dL (8-21)
[2023-08-23] MEDS ORDERED: ESCITALOPRAM OXALATE 10 MG TABLET PO SCH (09:00)
[2023-08-23] MEDS ORDERED: NON-FORMULARY MEDICATION (Rosuvastatin Calcium 20 MG) PO SCH (09:00)
[2023-08-23] MEDS ORDERED: ICOSAPENT ETHYL 1 GM PO SCH (09:00)
[2023-08-23] MEDS: ATORVASTATIN 20 MG TABLET PO SCH (09:44)
[2023-08-23] MEDS: OMEGA-3/DHA/EPA/FISH OIL 1 GM CAPSULE PO SCH (09:47)
[2023-08-23] MEDS: ASPIRIN 81 MG TAB.CHEW PO SCH (09:49)
[2023-08-23] MEDS: CITALOPRAM HYDROBROMIDE 20 MG TABLET PO SCH (09:49)
[2023-08-23] MEDS: POLYETHYLENE GLYCOL 3350, 17 GM/ POWD.PACK PO SCH (09:50)
[2023-08-23] MEDS: SPIRONOLACTONE 25 MG TABLET (ALDACTONE) PO ONE (09:50)
[2023-08-23] MEDS: DONEPEZIL HCL 5 MG TABLET (ARICEPT) PO SCH (09:50)
[2023-08-23] MEDS: cefTRIAXone 1 GM in D5W 50 ML IV SCH (09:51)
[2023-08-23] MEDS: SPIRONOLACTONE 25 MG TABLET (ALDACTONE) PO SCH (09:52)
[2023-08-24 01:16] VITALS: BP_SYST 137; PULSE 68; RESP 16; TEMP 98.1; O2SAT 94
[2023-08-24 06:47] LABS: BASOPHILS # (AUTO) 0.1 K/uL (0.0-0.2); EOSINOPHILS # (AUTO) 0.2 K/uL (0.0-0.4); EOSINOPHILS % (AUTO) 2.4 % (0.0-4.0); HEMATOCRIT 37.7 % (36-48); HEMOGLOBIN 12.6 g/dL (12.0-16.0); LYMPHOCYTES # (AUTO) 2.4 K/uL (1.0-5.5); LYMPHOCYTES % (AUTO) 33.1 % (20.5-51.5); MEAN CORPUSCULAR HEMOGLOBIN 29 pg (27-31); MEAN CORPUSCULAR HGB CONC 33 % (32-36); MEAN CORPUSCULAR VOLUME 86 fL (79.0-98.0); MONOCYTES # (AUTO) 0.7 K/uL (0.0-1.0); MONOCYTES % (AUTO) 10.2 % (1.7-9.3); NEUTROPHILS # (AUTO) 3.8 K/uL (1.8-7.7); NEUTROPHILS % (AUTO) 53.3 % (40.0-70.0); PLATELET COUNT (AUTO) 170 K/uL (130-430); RED BLOOD CELL COUNT(AUTO) 4.37 MIL/uL (4.2-6.2); RED CELL DISTRIBUTION WIDTH 17.8 % (9.0-15.0); WHITE BLOOD COUNT (AUTO) 7.1 K/uL (4.8-10.8)
[2023-08-24 07:29] LABS: ANION GAP 9 (5-15); CALCIUM 9.3 mg/dL (8.4-11.0); CARBON DIOXIDE 25 mmol/L (23-29); CHLORIDE 106 mmol/L (98-107); CREATININE 1.21 mg/dL (0.55-1.30); GLUCOSE 116 mg/dL (74-106); POTASSIUM 4.4 mmol/L (3.5-5.1); SODIUM SERUM 140 mmol/L (136-145); UREA NITROGEN, BLOOD 20 mg/dL (8-21)
[2023-08-24 08:00] VITALS: BP_SYST 164; PULSE 77; RESP 18; TEMP 98.5; O2SAT 93
[2023-08-24 09:44] VITALS: O2SAT 93
[2023-08-24 17:30] VITALS: BP_SYST 122; PULSE 68; RESP 18; TEMP 97.7; O2SAT 98
[2023-08-24 19:00] VITALS: BP_SYST 129; PULSE 86; RESP 18; TEMP 97.8; O2SAT 98
[2023-08-24 20:00] VITALS: BP_SYST 134; PULSE 74; RESP 20; TEMP 97.6; O2SAT 99
[2023-08-25] VITALS: BP_SYST 128; PULSE 82; RESP 18; TEMP 98.7; O2SAT 97
[2023-08-25 06:15] LABS: BASOPHILS # (AUTO) 0.1 K/uL (0.0-0.2); BASOPHILS % (AUTO) 1.1 % (0.0-2.0); EOSINOPHILS # (AUTO) 0.2 K/uL (0.0-0.4); EOSINOPHILS % (AUTO) 2.5 % (0.0-4.0); HEMOGLOBIN 13.1 g/dL (12.0-16.0); LYMPHOCYTES # (AUTO) 1.9 K/uL (1.0-5.5); LYMPHOCYTES % (AUTO) 29.1 % (20.5-51.5); MEAN CORPUSCULAR HEMOGLOBIN 29 pg (27-31); MEAN CORPUSCULAR HGB CONC 34 % (32-36); MEAN CORPUSCULAR VOLUME 86 fL (79.0-98.0); MONOCYTES # (AUTO) 0.6 K/uL (0.0-1.0); MONOCYTES % (AUTO) 9.1 % (1.7-9.3); NEUTROPHILS # (AUTO) 3.7 K/uL (1.8-7.7); NEUTROPHILS % (AUTO) 58.2 % (40.0-70.0); PLATELET COUNT (AUTO) 186 K/uL (130-430); RED BLOOD CELL COUNT(AUTO) 4.51 MIL/uL (4.2-6.2); RED CELL DISTRIBUTION WIDTH 17.3 % (9.0-15.0); WHITE BLOOD COUNT (AUTO) 6.4 K/uL (4.8-10.8)
[2023-08-25 06:44] LABS: ANION GAP 9 (5-15); CALCIUM 9.1 mg/dL (8.4-11.0); CARBON DIOXIDE 23 mmol/L (23-29); CHLORIDE 106 mmol/L (98-107); CREATININE 1.04 mg/dL (0.55-1.30); GLUCOSE 94 mg/dL (74-106); POTASSIUM 4.3 mmol/L (3.5-5.1); SODIUM SERUM 138 mmol/L (136-145); UREA NITROGEN, BLOOD 15 mg/dL (8-21)
[2023-08-25 08:14] VITALS: BP_SYST 152; PULSE 69; RESP 20; TEMP 97.3; O2SAT 97
[2023-08-25 11:00] VITALS: O2SAT 97
[2023-08-25 11:32] VITALS: BP_SYST 119; PULSE 64; RESP 16; TEMP 97.4; O2SAT 94
[2023-08-25] MEDS: COMMUNICATION ORDER XX ONE (15:39)
[2023-08-25] MEDS: MEROPENEM 1 GM in NS 100 ML IV SCH (15:41)
[2023-08-25] MEDS ORDERED: MEROPENEM 1 GM in NS 100 ML IV SCH (15:45)
[2023-08-25 16:21] VITALS: BP_SYST 135; PULSE 64; RESP 18; TEMP 97.8; O2SAT 99
[2023-08-25 16:29] VITALS: BP_SYST 121; PULSE 69; RESP 17; TEMP 98; O2SAT 94
== END 2023-08-25 18:28 | DRG 689 ==
LOC: SED 13:42 → STU 16:17
PROVIDERS: ADMIT General Practice; ATTEND General Practice
PROC: 0HQ0XZZ Repair Scalp Skin, External Approach (ICD-10-PCS; principal; 2023-08-22)
DX: N39.0 Urinary tract infection, site not specified (principal); G93.41 Metabolic encephalopathy; S00.03XA Contusion of scalp, initial encounter; G30.9 Alzheimer's disease, unspecified; I50.9 Heart failure, unspecified; E11.65 Type 2 diabetes mellitus with hyperglycemia; E78.5 Hyperlipidemia, unspecified; W18.39XA Other fall on same level, initial encounter; K21.9 Gastro-esophageal reflux disease without esophagitis; F32.A Depression, unspecified; Z66 Do not resuscitate; F02.80 Dementia in other diseases classified elsewhere, unspecified severity, without behavioral disturbance, psychotic disturbance, mood disturbance, and anxiety; Y93.89 Activity, other specified; Y92.89 Other specified places as the place of occurrence of the external cause; Y99.8 Other external cause status; Z79.82 Long term (current) use of aspirin; Z79.899 Other long term (current) drug therapy; S09.90XA Unspecified injury of head, initial encounter
CPT/HCPCS: 36415; 70450-TC; 71045; 72125-TC; 73502; 80048; 81000; 81001; 81015; 82009; 82550; 82948; 83037; 83605; 83735; 83880; 85025; 87081; 87086; 93005; 93880; 94760; 97110-GP; 97530-GP; 99285; G0378; J0696; J1644; J1815; J2185; J7060